=== PATIENT | female | born 1980 | race African-American/Black ===

== ENCOUNTER 2018-10-17 04:55 | Emergency (ER) | payer BC, MEDICAID ==
[~2018-10-17] VITALS: Ht 167.6 cm; Wt 56.7 kg
[2018-10-17 05:55] VITALS: BP 163/91
== END 2018-10-17 07:52 | disposition home or self-care (01) ==
LOC: ER 04:55
DX: L23.9 Allergic contact dermatitis, unspecified cause (principal)